=== PATIENT | male | born 2000 | race Caucasian/White ===

== ENCOUNTER 2018-07-20 19:54 | Emergency (ER) | payer SELFPAY ==
[~2018-07-20] VITALS: Ht 188 cm; Wt 117.3 kg
[2018-07-20 21:49] VITALS: BP 140/81; PULSE 98; TEMP 100
== END 2018-07-20 22:02 | disposition home or self-care (01) ==
LOC: COL.ER 19:54
DX: J03.90 Acute tonsillitis, unspecified (principal)